=== PATIENT | female | born 1950 | race American Indian/Alaskan Native ===

== ENCOUNTER 2018-12-11 11:26 | Day surgery (SDC) | payer MEDICARE ==
--- NOTE | 2018-12-11 12:23 | Anesthesia Day of Surgery ---
Anesthesia Day of Surgery - Day of Surgery Patient Examined: Yes Patient H&P Reviewed: Yes Patient is NPO: Yes
--- NOTE | 2018-12-11 12:26 | Anesthesia Consultation ---
Anesthesia Consult and Med Hx Date of service: 12/11/18 - Airway Anesthetic Teeth Evaluation: Edentulous ROM Head & Neck: Adequate Mental/Hyoid Distance: Adequate Mallampati Class: Class IV Intubation Access Assessment: Probably Good - Pre-Operative Health Status ASA Pre-Surgery Classification: ASA3 Proposed Anesthetic Plan: MAC - Pulmonary Hx Respiratory Symptoms: Yes (PE x 2) - Endocrine Hx Non-Insulin Dependent Diabetes: Yes Hx Thyroid Disease: Yes Hx Hypothyroidism: Yes
[2018-12-11] MEDS: NACL 0.9% 1000 ML 1,000 ML IV SCH ×2 (13:05→14:22)
[2018-12-11] MEDS ORDERED: HumuLIN R IV ONE (13:07)
[2018-12-11] MEDS ORDERED: WATER FOR IRRIG STERILE ONE (15:09)
[2018-12-11] MEDS ORDERED: WATER FOR IRRIG STERILE IR ONE (15:09)
[2018-12-11] MEDS ORDERED: DIPRIVAN 10 MG/ML IV ONE (15:28)
--- NOTE | 2018-12-11 15:34 | Operative Report ---
Operative Report Operative Report: Date of procedure: 12/11/2018 Procedure: Colonoscopy with multiple Snare polypectomies, Submucosal injection with elevation of polyps, Multiple Hot Biopsy Polypectomies, Ablation of colon polyps. Attending physician: Nicko Mac M.D. Resident Athletic Trainer: Nicko Mac M.D. Indication: Patient is a 68-year-old female who presents for screening colonoscopy. This colonoscopy serves to evaluate patient so that treatment may be directed based on the findings. Consent: Informed consent was obtained after advising the patient and family regarding nature of this procedure, its indications, potential benefits as well as possible complications including but not limited to bleeding perforation and adverse reaction to medication, infection as well as other cardiopulmonary complications. An informed written and verbal consent was then obtained after due opportunity was provided for questions and answers. Monitoring: Patient was monitored continuously with pulse oximetry and electrocardiographic recordings as well as blood pressure recordings. Vital signs remained stable throughout this procedure with no untoward events. Preoperative assessment: Patient was assessed immediately prior to this procedure for capacity to tolerate monitored anesthesia care and moderate sedation as well as general anesthesia. Patient's ASA classification is 2, Mallampati class is 2, Hyomental distance is 3. Instrument: Olympus video colonoscope. Medications: Propofol given intravenously in divided doses. For details please refer to anesthesia records. Description of procedure: Patient was placed in the left lateral decubitus position after achieving sedation, a digital rectal examination was performed following which the colonoscope was introduced into the anal verge and advanced to the cecum which was identified by the cecal valve, the appendiceal orifice, as well as by the cecal strap and direct transillumination. The colonoscope was subsequently withdrawn with careful inspection of all mucosal surfaces. Patient tolerated this procedure well and was subsequently taken to the recovery room. The following findings were noted. Findings: The preparation was relatively poor. There was densely adherent thick liquid stool seen in the cecum. In the immediate ascending colon, patient had a sessile 8 mm polyp which was elevated with submucosal injection of saline and removed by snare electrocautery. The base was then ablated. In the transverse colon, patient had a 1-1.5 cm polyp which was sessile. It was elevated with submucosal injection of saline and removed by snare electrocautery and retrieved. Again the polyp base was ablated. The descending colon was normal. In the sigmoid colon, patient had 3 polyps measuring 5-8 mm just with clot. All polyps removed by hot biopsy polypectomy and retrieved. A gaining this area, there was densely adherent stool. The rectum was normal. On the retroflexed view of the anal verge, patient had internal hemorrhoids. Impression: Ascending polyp status post snare polypectomy and submucosal injection, ablation of polyp base. Transverse colon polyp status post submucosal injection and snare polypectomy, with ablation of polyp base. Multiple Sigmoid colon polyps status post hot biopsy polypectomy . Internal hemorrhoids. Retained stool. Plan: Follow pathology report. High-fiber diet. Consider repeat colonoscopy in one year due to retained stool.
--- NOTE | 2018-12-11 15:35 | Discharge Summary ---
Short Stay Discharge Plan Activity: advance as tolerated Weight Bearing Status: Weight Bear as Tolerated Diet: regular Follow up with: NABIL ANDREA MD [Primary Care Provider] - 7 Days
[2018-12-11 15:51] VITALS: BP 123/74
== END 2018-12-11 11:27 | disposition home or self-care (01) ==
LOC: GIO 11:26
PROVIDERS: ATTEND Internal Medicine Gastroenterology
DX: Z12.11 Encounter for screening for malignant neoplasm of colon (principal); D12.2 Benign neoplasm of ascending colon; D12.3 Benign neoplasm of transverse colon; D12.5 Benign neoplasm of sigmoid colon; K64.8 Other hemorrhoids; I12.9 Hypertensive chronic kidney disease with stage 1 through stage 4 chronic kidney disease, or unspecified chronic kidney disease; E11.22 Type 2 diabetes mellitus with diabetic chronic kidney disease; N18.9 Chronic kidney disease, unspecified; E78.00 Pure hypercholesterolemia, unspecified; E03.9 Hypothyroidism, unspecified; Z98.890 Other specified postprocedural states; Z79.01 Long term (current) use of anticoagulants; Z79.899 Other long term (current) drug therapy; Z88.5 Allergy status to narcotic agent; Z88.8 Allergy status to other drugs, medicaments and biological substances
CPT/HCPCS: 45381; 45384; 45385; 82962; 88305; J2704; J1815